=== PATIENT | female | born 1980 ===

== ENCOUNTER 2024-11-09 11:24 | Outpatient (AMB) | payer BC, SELFPAY ==
[2024-11-09 11:26] VITALS: BP 112/68; PULSE 85; O2SAT 96; BMI 26.2
--- NOTE | 2024-11-09 11:26 | MHC.PC.OV ---
Vital Signs 11/09/24 11:26 Height 5 ft Weight 134 lb BMI 26.2 BP 112/68 Blood Pressure Location Lt brachial Position Sitting Pulse 85 Pulse Source Pulse Oximeter Pulse Oximetry (%) 96 Oxygen Delivery Method Room Air Intake Visit Reasons: PE Advertising Operations Coordinator Required: No Accompanied by: Self / Same As Patient Allergies No Known Allergies Allergy (Verified 11/09/24 11:26) Tobacco use date assessed: 11/09/24 Dental Screening Dental Screen Date: 11/09/24 Did you have a dental visit in the last 12 months?: Yes Did you have a dental problem in the last 6 months where you did not have access to dental care?: No Was dental information given to patient?: Patient has dentist HPI PE HPI Details healthy PFSH Surgical History No pertinent past surgical history Family History Father Diabetes Mother No problems noted. Maternal Grandfather Heart disease Alcoholism Paternal Grandmother Diabetes Social History (Updated 08/22/20 @ 11:07 by ZOILA Webster) Housing: Apartment Alcohol intake: current Alcohol intake frequency: a few times a week Patient Tobacco Use Status: Current everyday Tobacco user Tobacco use type: Cigarette Cigarettes Per Day: 10 e-Cigarette/Vaping Use: Never Used Second Hand Smoke Exposure: No service: No Current occupational status: employed Cognitive needs: No Hearing needs: No Vision needs: No Questionnaire PHQ-9 Over the last 2 weeks, how often have you been bothered by any of the following problems? 1. Little interest or pleasure in doing things: not at all 2. Feeling down, depressed, or hopeless: not at all 3. Trouble falling or staying asleep, or sleeping too much: several days 4. Feeling tired or having little energy: several days 5. Poor appetite or overeating: not at all 6. Feeling bad about yourself - or that you are a failure or have let yourself or your family down: not at all 7. Trouble concentrating on things, such as reading the newspaper or watching television: not at all 8. Moving or speaking so slowly that other people could have noticed. Or the opposite - being so fidgety or restless that you have been moving around a lot more than usual: not at all 9. Thoughts that you would be better off or of hurting yourself in some way: not at all Total score: 2 Depression Screening Interpretation: Positive Depression Screening Done: Yes 39175 - PHQ-9 Billing: Yes Source: Developed by Drs. Germán Medina, Kim Beckman, Floyd Holt and colleagues, with an educational candida from [employer]. Thrive Questionnaire Date Thrive assessed: 11/09/24 I am a: Patient What is your living situation today?: I have a steady place to live Within the past 12 months, did the food you bought not last and you didn't have the money to get more?: I choose not to answer this question Within the past 12 months, did you worry whether your food would run out before you got money to buy more?: I choose not to answer this question Do you have trouble paying for medicines?: I choose not to answer this question Do you have trouble getting transportation to medical appointments?: I choose not to answer this question Do you have trouble paying your heating and electricity bill?: I choose not to answer this question Do you have trouble taking care of your child, family member or friend?: I choose not to answer this question Do you have trouble with day-to-day activities such as bathing, preparing meals, shopping, managing finances, etc.?: I choose not to answer this question Are you currently unemployed and looking for a job?: I choose not to answer this question Are you interested in more education?: I choose not to answer this question Please select the resources that you would like help with: Transportation and None Currently or been in a relationship where the following occur: No concerns reported THRIVE Score: 0 AUDIT C Alcohol Use Questionnaire (AUDIT-C) 1. How often do you have a drink containing alcohol?: 2-3 times a week 2. How many drinks containing alcohol do you have on a typical day when you are drinking?: 3 or 4 3. How often do you have six or more drinks on one occasion?: Daily or almost daily Total Score: 8 DELROY-7 AMB Questionnaire DELROY-7 Date DELROY - 7 assessed: 11/09/24 Feeling nervous, anxious, or on edge: 1 = Several days Not being able to stop or control worryin = Several days Worrying too much about different things: 1 = Several days Trouble relaxin = Several days Being so restless that it is hard to sit still: 1 = Several days Becoming easily annoyed or irritable: 1 = Several days Feeling afraid as if something awful might happen: 1 = Several days Total DELROY-7 score (0-4 normal; 5-9 mild; 10-14 moderate; 15-21 severe): 7 Source: Developed by Drs. Germán Medina, Kim Beckman, Floyd Holt and colleagues, with an educational candida from [employer]. DELROY-7 Assessment Billing DELROY-7 Assessment Tool: DELROY-7 Assessment 96216 Review of Systems Const Denies chills, Denies fatigue, Denies headache(s) and Denies weight loss Eyes Denies change in vision, Denies diplopia and Denies eye pain ENT Denies vertigo, Denies dizziness, Denies headache(s) and Denies nasal discharge Card Denies chest pain, Denies rapid heart rate and Denies dyspnea on exertion Resp Denies chest congestion, Denies cough, Denies pain with cough and Denies dyspnea on exertion GI Denies abdominal pain, Denies hematochezia and Denies change in bowel habits Musc Denies myalgias, Denies arthralgias and Denies joint swelling Skin/Breast Denies lesions and Denies unusual bruising Neuro Denies vertigo, Denies dizziness, Denies headache(s) and Denies focal weakness Endo Denies fatigue Physical exam (Primary Care) Vital Signs: Last Vital Signs Pulse 85 11/09/24 11:26 BP 112/68 11/09/24 11:26 Pulse Ox 96 11/09/24 11:26 Oxygen Delivery Method Room Air 11/09/24 11:26 BMI result Body Mass Index 26.2 Tobacco/Smoking Status: Tobacco use Status Tobacco use date assessed 11/09/24 11/09/24 11:31 Patient Tobacco Use Status Current everyday Tobacco 11/09/24 11:31 Tobacco use type Cigarette 11/09/24 11:31 e-Cigarette/Vaping Use Never Used 11/09/24 11:31 PHQ-9: PHQ-9 Score PHQ-9: Total score 2 11/09/24 11:31 Depression Screening Interpretation: Positive Thrive Assessment: Date of Thrive Assessment Date Thrive assessed 11/09/24 11/09/24 11:31 Currently or been in a relationship where the following occur: No concerns reported Const General: cooperative, healthy appearing and no acute distress Orientation/consciousness: oriented to person, oriented to place and oriented to time HENMT Head: Yes normal to inspection, Yes normocephalic and Yes atraumatic Mouth: Normal oral and palatal mucosa present and tongue normal Throat: Yes posterior oropharynx normal and Yes uvula midline Eyes General: appearance normal, both eyes and all related structures Neck Neck: Yes normal visual inspection, Yes full ROM and Yes no lymphadenopathy Thyroid: Thyroid normal Carotids: normal carotid upstroke Chest Chest palpation & inspection: normal inspection of the chest Resp Effort & Inspection: normal respiratory effort and able to speak in complete sentences Auscultation: clear to auscultation bilaterally Cardio Jugular venous distension: no JVD Palpation: normal PMI Rate: regular rate Rhythm: regular rhythm Heart sounds: S1 normal heart sound present and S2 normal heart sound present GI Inspection: Yes normal to inspection Palpation (GI): Soft to palpation and No hepatosplenomegaly present Auscultation: normal bowel sounds General: Yes no CVA tenderness Back/Spine/Pelvis Back: no CVA tenderness Skin General skin exam: no rashes or lesions noted Neuro General: oriented to person, oriented to place and oriented to time Extrem General: Yes normal to inspection and Yes full ROM Coding Level of Care Code Est Pt Prev Care 40-64y(68972) Diagnoses Physical exam Z00.00 Additional Codes DELROY-7 Assessment Billing - DELROY-7 Assessment Tool: DELROY-7 Assessment 43042 ([id number]) PHQ-9 - 61327 - PHQ-9 Billing: Yes ([id number]) Assessment & Plan Assessment & Plan (1) Physical exam: Code(s): Z00.00 - Encounter for general adult medical examination without abnormal findings Category: Medical Plan: stable; do labs Orders: Orders Thyroid Stimulating Hormone Today Z13.29 - Encounter for screening for other suspected endocrine disorder Lipid Panel Today Z13.220 - Encounter for screening for lipoid disorders Complete Blood Count Auto Diff Today Z13.0 - Encounter for screening for diseases of the blood and blood-forming organs and certain disorders involving the immune mechanism Comprehensive [place]. Panel Fast Today Z13.9 - Encounter for screening, unspecified
== END 2024-11-09 12:02 | disposition home or self-care (01) ==
PROVIDERS: PCP Internal Medicine; Visit Provider Internal Medicine
DX: Z00.00 Encounter for general adult medical examination without abnormal findings (principal)

== ENCOUNTER → 2024-11-09 11:24 | Outpatient (BNVA) | payer BC, SELFPAY | PROVIDERS: PCP Internal Medicine; Visit Provider Internal Medicine | DX: Z00.00 Encounter for general adult medical examination without abnormal findings (principal) | CPT/HCPCS: 96127 ==

== ENCOUNTER 2024-11-23 09:53 | Outpatient (REF) | payer BC, SELFPAY ==
[2024-11-23 10:21] LABS: MANUAL DIFF FLAG NO
[2024-11-23 10:45] LABS: Basophils Absolute Auto 0.1 X10*3/uL (0.0-0.2); Basophils Percent Auto 0.8 % (0-2); Eosinophils Absolute Auto 0.3 X10*3/uL (0.0-0.4); Eosinophils Percent Auto 4.9 % (0-4); Hematocrit 39.7 % (37.0-47.0); Hemoglobin 13.8 g/dl (12.0-16.0); Imm Gran Abs Auto 0.04 X10*3/uL (0.00-0.03); Imm Gran Pct Auto 0.6 % (0.0-0.4); Lymphocytes Absolute Auto 2.9 X10*3/uL (1.2-4.9); Lymphocytes Percent Auto 44.6 % (20-40); Mean Corpuscular HGB Conc 34.8 g/dl (31.0-35.0); Mean Corpuscular Hemoglobin 31.9 pg (27.0-33.0); Mean Corpuscular Volume 91.7 fL (80.0-98.0); Monocytes Absolute Auto 0.5 X10*3/uL (0.1-1.2); Monocytes Percent Auto 7.1 % (2-11); Neutrophils Absolute Auto 2.7 x10*3/uL (2.0-8.3); Platelet Count 329 X10*3/uL (160-400); Red Blood Count 4.33 X10*6/uL (4.20-5.50); Red Cell Distribution Width 13.2 % (11.0-16.0); White Blood Count 6.5 X10*3/uL (4.8-10.8)
[2024-11-23 11:29] LABS: Alanine Aminotransferase 22 U/L (0-31); Albumin Level 4.1 g/dL (3.5-5.0); Anion Gap 10 (12-20); Aspartate Amino Transferase 21 U/L (5-31); Bilirubin Total 0.3 mg/dL (0.0-1.0); Blood Urea Nitrogen 11 mg/dL (9-16); Carbon Dioxide 25 mmol/L (22-29); Chloride 109 mmol/L (96-108); Cholesterol 202 mg/dL (<200); Estimated Glomerular Filt Rate > 60; Glucose Fasting 89 mg/dL (60-99); HDL Cholesterol 79 mg/dL (>40); LDL Cholesterol Calculated 113 mg/dL (<100); Potassium 4.2 mmol/L (3.3-5.1); Sodium 140 mmol/L (135-145); Total Protein 6.9 g/dL (6.5-8.0); Triglycerides 53 mg/dL (<150)
[2024-11-23 11:40] LABS: Alkaline Phosphatase 50 U/L (39-117)
[2024-11-23 11:49] LABS: Thyroid Stimulating Hormone 1.55 uIU/mL (0.32-4.0)
== END 2024-11-23 09:54 | disposition home or self-care (01) ==
LOC: HO.LAB 09:53
PROVIDERS: PCP Internal Medicine; Visit Provider Internal Medicine
DX: Z13.220 Encounter for screening for lipoid disorders (principal); Z13.9 Encounter for screening, unspecified; Z13.29 Encounter for screening for other suspected endocrine disorder; Z13.0 Encounter for screening for diseases of the blood and blood-forming organs and certain disorders involving the immune mechanism
CPT/HCPCS: 36415; 80053; 80061; 84443; 85025

== ENCOUNTER 2025-05-10 10:49 | Outpatient (AMB) | payer BC, SELFPAY ==
[2025-05-10 10:51] VITALS: BP 126/64; PULSE 113; TEMP 36.3; O2SAT 99; BMI 26.6
--- NOTE | 2025-05-10 10:51 | MHC.PC.OV ---
Vital Signs 05/10/25 10:51 Height 5 ft Weight 136 lb 6 oz BMI 26.6 BP 126/64 Blood Pressure Location Lt brachial Position Sitting Pulse 113 H Pulse Source Pulse Oximeter Temp 97.3 F Temp Source Temporal Artery Scan Pulse Oximetry (%) 99 Oxygen Delivery Method Room Air Intake Visit Reasons: Transfer care from Dr. Torres [facility] f/u Asthma Allergies No Known Allergies Allergy (Verified 05/10/25 11:27) Medication List - Last Reconciled 05/10/25 by Dayo Huerta MD albuterol sulfate 90 mcg/actuation 2 puffs inhalation Q4H PRN semaglutide (weight loss) 1 mg subcut QWEEK Tobacco use date assessed: 05/10/25 Dental Screening Dental Screen Date: 05/10/25 Did you have a dental visit in the last 12 months?: Yes Did you have a dental problem in the last 6 months where you did not have access to dental care?: No Was dental information given to patient?: Patient has dentist HPI Transfer care from Dr. Melissa barron/agus Asthma HPI Details Patient comes in today for her follow-up visit - is transferring over from Dr. Torres, who retired her the practice a few months ago patient states that she feels okay She denies any headaches or dizziness Denies any chest pains, no shortness of breath - states that her asthma is mostly exercise-induced and she only uses her rescue inhaler before exercising or working out as needed Needs her Albuterol inhaler Rx refilled No nausea/vomiting, no abdominal pain No change in bowel habits noted She would like to know how she did on her labs done back in November 2024 Adds that her weatherization coordinator has mentioned to her that she has an overbite and she appears to be tongue-thrusting when she sleeps and she has been advised that she may have a deviated nasal septum and that she may benefit from seeing an ENT specialist for further evaluation [facility] Medical History (Updated 05/12/25 @ 16:04 by Dayo Huerta MD) Overbite Exercise-induced asthma Surgical History No pertinent past surgical history Family History Father Diabetes Mother No problems noted. Maternal Grandfather Heart disease Alcoholism Paternal Grandmother Diabetes Social History Housing: Apartment Alcohol intake: current Alcohol intake frequency: a few times a week Patient Tobacco Use Status: Current everyday Tobacco user Tobacco use type: Cigarette Cigarettes Per Day: 10 e-Cigarette/Vaping Use: Never Used Second Hand Smoke Exposure: No service: No Current occupational status: employed Cognitive needs: No Hearing needs: No Vision needs: No Female Reproductive History Menstrual control method: none Total pregnancies: 0 Number of Living Children: 0 Date of Mammogram: 09/21/24 History of abnormal mammogram: Yes (fibrocystic breast disease) Questionnaire PHQ-9 Over the last 2 weeks, how often have you been bothered by any of the following problems? 1. Little interest or pleasure in doing things: not at all 2. Feeling down, depressed, or hopeless: not at all 3. Trouble falling or staying asleep, or sleeping too much: several days 4. Feeling tired or having little energy: several days 5. Poor appetite or overeating: not at all 6. Feeling bad about yourself - or that you are a failure or have let yourself or your family down: not at all 7. Trouble concentrating on things, such as reading the newspaper or watching television: not at all 8. Moving or speaking so slowly that other people could have noticed. Or the opposite - being so fidgety or restless that you have been moving around a lot more than usual: not at all 9. Thoughts that you would be better off or of hurting yourself in some way: not at all Total score: 2 Depression Screening Interpretation: Negative Depression Screening Done: Yes 74105 - PHQ-9 Billing: Yes Source: Developed by Drs. Germán Medina, Kim Beckman, Floyd Holt and colleagues, with an educational acndida from [employer]. Thrive Questionnaire Date Thrive assessed: 11/09/24 I am a: Patient What is your living situation today?: I have a steady place to live Within the past 12 months, did the food you bought not last and you didn't have the money to get more?: I choose not to answer this question Within the past 12 months, did you worry whether your food would run out before you got money to buy more?: I choose not to answer this question Do you have trouble paying for medicines?: I choose not to answer this question Do you have trouble getting transportation to medical appointments?: I choose not to answer this question Do you have trouble paying your heating and electricity bill?: I choose not to answer this question Do you have trouble taking care of your child, family member or friend?: I choose not to answer this question Do you have trouble with day-to-day activities such as bathing, preparing meals, shopping, managing finances, etc.?: I choose not to answer this question Are you currently unemployed and looking for a job?: I choose not to answer this question Are you interested in more education?: I choose not to answer this question Currently or been in a relationship where the following occur: No concerns reported THRIVE Score: 0 AUDIT C Alcohol Use Questionnaire (AUDIT-C) 1. How often do you have a drink containing alcohol?: 2-3 times a week 2. How many drinks containing alcohol do you have on a typical day when you are drinking?: 3 or 4 3. How often do you have six or more drinks on one occasion?: Less than monthly Total Score: 5 Score Reviewed/Action Taken: Yes DELROY-7 AMB Questionnaire DELROY-7 Date DELROY - 7 assessed: 11/09/24 Feeling nervous, anxious, or on edge: 1 = Several days Not being able to stop or control worryin = Several days Worrying too much about different things: 1 = Several days Trouble relaxin = Several days Being so restless that it is hard to sit still: 1 = Several days Becoming easily annoyed or irritable: 1 = Several days Feeling afraid as if something awful might happen: 1 = Several days Total DELROY-7 score (0-4 normal; 5-9 mild; 10-14 moderate; 15-21 severe): 7 Source: Developed by Drs. Germán Medina, Kim Beckman, Floyd Holt and colleagues, with an educational candida from [employer]. Review of Systems Const Denies chills, Denies fatigue, Denies fever(s) and Denies headache(s) ENT Denies dysphagia, Denies dizziness, Denies otalgia, Denies headache(s), Denies neck pain, Denies odynophagia and Denies sore throat Card Denies chest pain, Denies palpitations and Denies dyspnea Resp Denies chest congestion, Denies cough, Denies dyspnea and Denies wheezing GI Denies abdominal pain, Denies constipation, Denies dysphagia, Denies heartburn, Denies diarrhea, Denies nausea, Denies odynophagia and Denies vomiting Denies difficulty voiding, Denies nocturia, Denies dysuria and Denies urinary urgency Musc Denies back pain and Denies neck pain Skin/Breast Denies rash Neuro Denies dizziness and Denies headache(s) Endo Denies fatigue and Denies palpitations Aller/Immun Denies wheezing Physical exam (Primary Care) Vital Signs: Last Vital Signs Temp 97.3 F 05/10/25 10:51 Pulse 113 H 05/10/25 10:51 BP 126/64 05/10/25 10:51 Pulse Ox 99 05/10/25 10:51 Oxygen Delivery Method Room Air 05/10/25 10:51 BMI result Body Mass Index 26.6 Tobacco/Smoking Status: Tobacco use Status Tobacco use date assessed 05/10/25 05/10/25 10:55 Patient Tobacco Use Status Current everyday Tobacco 05/10/25 10:55 Tobacco use type Cigarette 05/10/25 10:55 e-Cigarette/Vaping Use Never Used 05/10/25 10:55 PHQ-9: PHQ-9 Score PHQ-9: Total score 2 05/10/25 11:36 Depression Screening Interpretation: Negative Thrive Assessment: Date of Thrive Assessment Date Thrive assessed 11/09/24 05/10/25 10:55 Currently or been in a relationship where the following occur: No concerns reported Const General: no acute distress and alert HENCO Teeth and gingiva: dentition normal and other ((+) overbite) Throat: Yes posterior oropharynx normal and Yes tonsils normal (no TP congestion) Neck Neck: Yes supple and No lymphadenopathy Thyroid: Thyroid normal Resp Auscultation: clear to auscultation bilaterally, no rales and no wheezes Cardio Rate: regular rate Rhythm: regular rhythm Heart sounds: no murmurs GI Palpation (GI): Soft to palpation and nontender Auscultation: normal bowel sounds General: Yes no CVA tenderness Back/Spine/Pelvis Back: no CVA tenderness Thoracic/Lumbar Spine: No lumbar spinal tenderness Skin Rashes: no rashes Extrem General: Yes no clubbing, cyanosis or edema Results Reviewed Results Reviewed: Laboratory Tests 11/23/24 10:19 WBC 6.5 Hgb 13.8 Hct 39.7 Plt Count 329 Sodium 140 Potassium 4.2 Creatinine 0.81 Estimated GFR > 60 Fasting Glucose 89 Calcium 9.0 AST 21 ALT 22 Triglycerides 53 Cholesterol 202 H LDL Cholesterol, Calc 113 H HDL Cholesterol 79 TSH 1.55 Coding Level of Care Code Est Pt Level 3 (41229) Diagnoses Exercise-induced asthma J45.990 Overbite M26.29 Additional Codes PHQ-9 - 43395 - PHQ-9 Billing: Yes ([id number]) Assessment & Plan Assessment & Plan (1) Exercise-induced asthma: Code(s): J45.990 - Exercise induced bronchospasm Category: Medical Plan: Continue Albuterol HFA 1 to 2 inhalations Q 6 hours PRN - Rx refilled (2) Overbite: Code(s): M26.29 - Other anomalies of dental arch relationship Category: Medical Plan: Patient reports that due to her overbite and tongue thrusting during sleep, her weatherization coordinator is concerned that she may have a deviated nasal septum and was advised to see ENT for further evaluation - referral to ENT placed Plan To return as scheduled in December 2025 for her annual physical examination Orders: Referrals Ear/Nose/Throat Referral J34.2 - Deviated nasal septum, R09.81 - Nasal congestion Medications: Changed From albuterol sulfate 90 mcg/actuation 2 puffs inhalation Q4H PRN 8.5 grams 8RF bronchospasm To albuterol sulfate 90 mcg/actuation 2 puffs inhalation Q4-6H PRN 8.5 grams 11RF bronchospasm
== END 2025-05-10 11:45 | disposition home or self-care (01) ==
LOC: HO.HMCH 10:49
PROVIDERS: PCP Internal Medicine; Visit Provider Internal Medicine
DX: J45.990 Exercise induced bronchospasm (principal); M26.29 Other anomalies of dental arch relationship

== ENCOUNTER → 2025-05-10 10:49 | Outpatient (BNVA) | payer BC, SELFPAY | PROVIDERS: PCP Internal Medicine; Visit Provider Internal Medicine | DX: J45.990 Exercise induced bronchospasm (principal); J34.2 Deviated nasal septum; M26.29 Other anomalies of dental arch relationship; R09.81 Nasal congestion | CPT/HCPCS: 96127 ==

== ENCOUNTER 2025-07-12 12:32 | Outpatient (AMB) | payer BC, SELFPAY ==
[2025-07-12 13:03] VITALS: BP 110/70; PULSE 68; TEMP 36.9; O2SAT 98; BMI 26.6
--- NOTE | 2025-07-12 13:03 | MHC.OFFWIV ---
Intake Vital Signs 07/12/25 13:03 Height 5 ft Weight 136 lb BMI 26.6 BP 110/70 Blood Pressure Location Lt brachial Position Sitting Pulse 68 Pulse Source Pulse Oximeter Temp 98.4 F Temp Source Oral Pulse Oximetry (%) 98 Oxygen Delivery Method Room Air Intake Visit Reasons: EP-lt underarm rash Intake Note: EP complains of red and mildly itchy rash without pain under her left and right arms observed over a month ago. Patient Tobacco Use Status: Current everyday Tobacco user Allergies No Known Allergies Allergy (Verified 07/12/25 13:12) Do you need a note to return to daycare/school/sports/work: Yes HPI HPI Comments History of Present Illness Details History - The patient is a 45-year-old female presenting with a rash and itching in the axillary region. - The rash has been present for approximately one month and is associated with itching. - The patient denies any changes in personal care products or shaving habits that could have contributed to the condition. - The patient reports a history of increased sweating, particularly after recovering from COVID-19, which may have exacerbated the condition. - Uses Ivory soap and she has recently changed her deodorant. - She has no joint pain, fever, chills, CP or SOB. - She has not tried anything for the rash. Physical Exam General: Cooperative, healthy appearing, comfortable, no acute distress and well developed Orientation: Patient oriented x3 Limitations: No limitations Mouth: normal, moist oral mucosa Neck: Normal visual inspection and Yes full ROM Respiratory: Normal respiratory effort and able to speak in complete sentences. Clear to auscultation bilaterally. No w/r/r noted. Cardiovascular: RRR, no m/r/g noted. Normal S1 and S2 Skin: Maculopapular erythematous flat blanchable non-tender rash noted in the axilla bilaterally. Patient was informed and verbally consented to the use of an ambient scribe for clinic note documentation during this visit [facility] Medical History (Updated 05/12/25 @ 16:04 by Dayo Huerta MD) Overbite Exercise-induced asthma Surgical History No pertinent past surgical history Family History Father Diabetes Mother No problems noted. Maternal Grandfather Heart disease Alcoholism Paternal Grandmother Diabetes Social History Housing: Apartment Alcohol intake: current Alcohol intake frequency: a few times a week Patient Tobacco Use Status: Current everyday Tobacco user Tobacco use type: Cigarette Cigarettes Per Day: 10 e-Cigarette/Vaping Use: Never Used Second Hand Smoke Exposure: No service: No Current occupational status: employed Cognitive needs: No Hearing needs: No Vision needs: No Review of Systems Const All systems reviewed & are unremarkable except as noted in HPI and below Physical Exam Vital Signs: Last Vital Signs Temp 98.4 F 07/12/25 13:03 Pulse 68 07/12/25 13:03 BP 110/70 07/12/25 13:03 Pulse Ox 98 07/12/25 13:03 Oxygen Delivery Method Room Air 07/12/25 13:03 BMI result Body Mass Index 26.6 Assessment & Plan Assessment & Plan (1) Rash: Code(s): R21 - Rash and other nonspecific skin eruption Plan Most likely tinea vs cellulitis Plan - The patient was advised to discard current razors and avoid using fragrant products to prevent further irritation. - A topical cream was prescribed to be applied three times daily for three weeks to treat the dermatitis. - The patient was instructed to keep the axillary area dry and minimize deodorant use to avoid clogging pores. Medications: New clotrimazole 1% 1 appl topical bid 45 grams 1RF 4 weeks Coding Level of Care Code Est Pt Level 3 (98701) Diagnoses Rash R21
== END 2025-07-12 14:42 | disposition home or self-care (01) ==
PROVIDERS: PCP Internal Medicine; Visit Provider Physician Assistant Medical
DX: R21 Rash and other nonspecific skin eruption (principal)